=== PATIENT | female | born 1965 | race Caucasian/White ===

== ENCOUNTER 2017-09-11 16:14 | Emergency (ER) | payer MEDICAID ==
[2017-09-11] MEDS: ACETAMINOPHEN 325 MG TAB PO (18:01)
== END 2017-09-11 20:04 | disposition home or self-care (01) ==
LOC: FTE 16:14
DX: R05 Cough (principal)
CPT/HCPCS: 71010; 99283-25

== ENCOUNTER 2017-11-14 14:22 | Emergency (ER) | payer MEDICAID ==
[2017-11-14] MEDS: LIDOCAINE 1% (MDV) 20 ML INJ SC (17:07)
== END 2017-11-14 19:50 | disposition home or self-care (01) ==
LOC: FTE 14:22
DX: S91.311A Laceration without foreign body, right foot, initial encounter (principal); W26.0XXA Contact with knife, initial encounter; Y92.9 Unspecified place or not applicable
CPT/HCPCS: 12001; 99283-25

== ENCOUNTER 2018-03-25 14:35 | Emergency (ER) | payer SELFPAY, MEDICAID | END 2018-03-25 17:48 | disposition left against medical advice (07) | LOC: E/R 17:48 | DX: Z53.21 Procedure and treatment not carried out due to patient leaving prior to being seen by health care provider (principal) ==